=== PATIENT | male | born 1970 | race Caucasian/White ===

== ENCOUNTER 2022-05-07 13:42 | Emergency (ER) | payer MEDICAID ==
[~2022-05-07] VITALS: Ht 167.6 cm; Wt 118.0 kg
[2022-05-07 17:00] LABS: BASOPHILS % 0.4 % (0.0-2.0); EOSINOPHILS % 0.3 % (0.0-5.0); HEMATOCRIT. 36.8 % (42.0-52.0); HEMOGLOBIN. 13.2 g/dL (14.0-18.0); LYMPHOCYTES % 21.3 % (20.0-50.0); MEAN CORPUSCULAR HEMOGLOBIN 37.1 pg (28.0-32.0); MEAN CORPUSCULAR VOLUME 103.5 fL (80.0-94.0); MONOCYTES % 7.5 % (2.0-8.0); NEUTROPHILS % 70.5 % (40.0-76.0); PLATELET 126 x1000/uL (130-400); RED BLOOD CELL COUNT 3.56 mill/uL (4.7-6.1); RED CELL DISTRIBUTION WIDTH 13.8 % (11.6-14.6)
[2022-05-07 17:08] LABS: INR 1.1; PARTIAL THROMBOPLASTIN TIME 27.3 sec (23.4-31.0)
[2022-05-07] MEDS ORDERED: TRANEXAMIC ACID 1,000 MG/10 ML IV ONE (17:30)
[2022-05-07] MEDS ORDERED: LIDOCAINE HCL/EPINEPHRINE 1%-EPI 1:100,000 50 ML VIAL INFIL ONE (18:45)
[2022-05-07] MEDS ORDERED: LIDOCAINE HCL/EPINEPHRINE 1%-EPI 1:100,000 50 ML VIAL INFIL NR (19:30)
[2022-05-07] MEDS ORDERED: LIDOCAINE HCL 1%/EPI 1:200,000 30 ML VIAL IJ NR (19:48)
[2022-05-07] MEDS ORDERED: SILVER NITRATE APPLICATOR STICK TOP ONE (20:15)
[2022-05-07] MEDS ORDERED: SILVER NITRATE APPLICATOR STICK TOP NR (20:56)
[2022-05-07] MEDS ORDERED: LIDOCAINE 1%/EPI 1:200,000 10 ML VIAL IJ NR (21:00)
[2022-05-07] MEDS ORDERED: LIDOCAINE HCL 1%/EPI 1:200,000 30 ML VIAL MC NR (21:00)
[2022-05-07] MEDS ORDERED: ONDANSETRON HCL 4MG/2ML INJ IV ONE (22:30)
[2022-05-07] MEDS ORDERED: SODIUM CHLORIDE 0.9% 1,000 ML IV ONE (22:30)
[2022-05-07 22:42] LABS: BASOPHILS % 0.5 % (0.0-2.0); EOSINOPHILS % 0.7 % (0.0-5.0); HEMATOCRIT. 33.8 % (42.0-52.0); HEMOGLOBIN. 12.2 g/dL (14.0-18.0); LYMPHOCYTES % 27.9 % (20.0-50.0); MEAN CORPUSCULAR HEMOGLOBIN 36.9 pg (28.0-32.0); MEAN CORPUSCULAR VOLUME 102.5 fL (80.0-94.0); MEAN PLATELET VOLUME 7.9 fl (7.4-10.4); MONOCYTES % 6.8 % (2.0-8.0); NEUTROPHILS % 64.1 % (40.0-76.0); PLATELET 130 x1000/uL (130-400); RED CELL DISTRIBUTION WIDTH 13.7 % (11.6-14.6)
[2022-05-08 00:24] VITALS: BP 109/66
== END 2022-05-08 00:53 | disposition short-term general hospital (02) ==
LOC: ER 13:42 → CANBEDREQ 05-08 04:04
DX: L76.22 Postprocedural hemorrhage of skin and subcutaneous tissue following other procedure (principal); Y83.8 Other surgical procedures as the cause of abnormal reaction of the patient, or of later complication, without mention of misadventure at the time of the procedure; Y92.028 Other place in mobile home as the place of occurrence of the external cause
CPT/HCPCS: 36415; 85025; 85610; 85730; 86850; 86900; 86901; 96361; 96374; 96375; 99291; J2405; J3490; J7030; Z7610

== ENCOUNTER 2024-10-03 22:03 | Emergency (ER) | payer SELFPAY ==
[~2024-10-03] VITALS: Ht 167.6 cm; Wt 106.0 kg
[2024-10-03 22:16] VITALS: O2SAT 99
[2024-10-04] MEDS ORDERED: AMOX1TAB16 MT (03:15)
[2024-10-04 03:39] VITALS: BP 154/91; PULSE 78; RESP 16; TEMP 36.8; O2SAT 99
== END 2024-10-04 03:44 | disposition home or self-care (01) ==
LOC: ER 22:03
DX: S01.552A Open bite of oral cavity, initial encounter (principal); Z20.3 Contact with and (suspected) exposure to rabies; W64.XXXA Exposure to other animate mechanical forces, initial encounter; Y93.89 Activity, other specified; Y92.89 Other specified places as the place of occurrence of the external cause; Y99.8 Other external cause status
CPT/HCPCS: 99283